=== PATIENT | male | born 1985 | race Caucasian/White ===

== ENCOUNTER 2023-11-09 13:11 | Emergency (ER) | payer SELFPAY ==
[~2023-11-09] VITALS: Ht 182.9 cm; Wt 106.6 kg
[2023-11-09 13:15] VITALS: BP 119/78; PULSE 77; RESP 18; TEMP 98.5; O2SAT 98
[2023-11-09 14:43] LABS: BASOPHILS % (AUTO) 0.5 % (0.0-2.0); EOSINOPHILS # (AUTO) 0.2 K/uL (0-0.4); EOSINOPHILS % (AUTO) 3.4 % (0.0-4.0); HEMATOCRIT 44.6 % (36-52); HEMOGLOBIN 15.7 g/dL (12.0-18.0); LYMPHOCYTES # (AUTO) 1.5 K/uL (2.0-11.5); LYMPHOCYTES % (AUTO) 23.6 % (20.5-51.1); MEAN CORPUSCULAR HEMOGLOBIN 31 pg (27-31); MEAN CORPUSCULAR HGB CONC 35 g/dL (33-37); MONOCYTES # (AUTO) 0.4 K/uL (0.8-1.0); MONOCYTES % (AUTO) 7.1 % (1.7-9.3); NEUTROPHILS # (AUTO) 4.1 K/uL (1.8-7.7); NEUTROPHILS % (AUTO) 65.4 % (42.2-75.2); PLATELET COUNT (AUTO) 265 K/uL (140-450); RED BLOOD CELL COUNT(AUTO) 5.07 MIL/uL (4.20-6.10); RED CELL DISTRIBUTION WIDTH 12.9 % (11.6-13.7); WHITE BLOOD COUNT (AUTO) 6.3 K/uL (4.8-10.8)
[2023-11-09] MEDS: NACL 0.9% 1,000 ML IV ONE (14:50)
[2023-11-09 14:55] LABS: CALCIUM 8.8 mg/dL (8.5-10.1); CARBON DIOXIDE 27.1 mmol/L (21-32); CREATININE 0.9 mg/dL (0.6-1.3); POTASSIUM 4.1 mmol/L (3.5-5.1)
[2023-11-09 15:07] LABS: THYROID STIMULATING HORMONE 1.12 uIU/mL (0.34-3.74)
[2023-11-09 15:08] LABS: APPEARANCE,URINE CLEAR (CLEAR); BILIRUBIN,URINE NEGATIVE (NEGATIVE); BLOOD, URINE NEGATIVE (NEGATIVE); COLOR,URINE YELLOW (YELLOW); LEUKOCYTE ESTERASE ,URINE NEGATIVE (NEGATIVE); NITRITE, URINE NEGATIVE (NEGATIVE); PROTEIN,URINE NEGATIVE (NEGATIVE); UGLUCOSE NEGATIVE (NEGATIVE); UROBILINOGEN,URINE 0.2 EU/dL (0.2 - 1)
[2023-11-09 15:21] LABS: ALBUMIN 3.9 g/dL (3.4-5.0); BILIRUBIN,DIRECT 0.1 mg/dL (0.0-0.3); TOTAL BILIRUBIN 0.6 mg/dL (0.0-1.0); TOTAL PROTEIN, SERUM 7.1 g/dL (6.4-8.2)
[2023-11-09] MEDS ORDERED: ONDA-188 SL (15:21)
[2023-11-09] MEDS ORDERED: MELO-176 PO (15:21)
[2023-11-09] MEDS ORDERED: AMOX1TAB8 PO (15:21)
[2023-11-09] MEDS ORDERED: ONDANSETRON 4 MG/2 ML VIAL ONE (15:25)
[2023-11-09] MEDS ORDERED: KETOROLAC 30 MG/ML VIAL ONE (15:25)
[2023-11-09 15:26] LABS: AMPHETAMINE, URINE NEGATIVE ng/ml (NEG <=1000); BARBITURATE, URINE NEGATIVE ng/ml (NEG <=200); BENZODIAZEPINE, URINE NEGATIVE ng/mL (NEG <=200); CANNABINOID, URINE NEGATIVE ng/mL (NEG <=50); COCAINE, URINE NEGATIVE ng/mL (NEG <=300)
[2023-11-09 15:27] LABS: OPIATE, URINE NEGATIVE ng/mL (NEG <=2000); PHENCYCLIDINE SCREEN,URINE NEGATIVE ng/mL (NEG <=25)
[2023-11-09] MEDS: ONDANSETRON 4 MG/2 ML VIAL IVP ONE (15:38)
[2023-11-09] MEDS: KETOROLAC 30 MG/ML VIAL IVP ONE (15:42)
[2023-11-09 15:51] VITALS: BP 118/77; PULSE 77; RESP 18; TEMP 98.5; O2SAT 98
== END 2023-11-09 15:51 | disposition home or self-care (01) ==
LOC: MED 13:11
DX: R51.9 Headache, unspecified (principal); J32.9 Chronic sinusitis, unspecified; Z79.899 Other long term (current) drug therapy
CPT/HCPCS: 36415; 70450; 71045; 80048; 80076; 80305; 81003; 84443; 84484; 85025; 93005; 96361; 96374; 96375; 99285; J1885; J2405; J7030; Q0092